=== PATIENT | male | born 1955 | race Caucasian/White ===

== ENCOUNTER 2017-10-28 09:20 | Emergency (ER) | payer OTHER ==
[~2017-10-28] VITALS: Ht 180.3 cm; Wt 122.7 kg
[~2017-10-28 09:20] MED LIST: ALBUTEROL0.83 MG/ML IH; GLUCOPHAGE1000 MG PO; NORCO 325 MG-51 TAB PO; PRAVACHOL 20MG20 MG PO; PRIL40 PO; RT ADVAIR HFA 412 GM IH
[2017-10-28 10:15] LABS: BASO % 0.3 % (0.0-2.0); EOS # 0.1 (0.0-0.7); EOS % 1.4 % (0-4.0); GRAN # 5.8 (1.4-6.5); GRAN % 79.3 % (42.2-75.2); HEMATOCRIT 42.6 % (42.0-52.0); HEMOGLOBIN 14.6 g/dl (13.5-18.0); LYMPH # 0.9 (1.2-3.4); LYMPH % 12.3 % (20.0-51.0); MEAN CELL VOLUME 86 fl (80.0-100.0); MEAN CORPUSCULAR HEMOGLOBIN 30 pg (27.0-31.0); MEAN CORPUSCULAR HGB CONC 34 g/dl (33.0-37.0); MEAN PLATELET VOLUME 11.1 fl (7.4-10.4); MONO # 0.5 (0.1-0.6); MONO % 6.3 % (1.7-9.3); PLATELET COUNT 143 K/mm3 (130-400); RED BLOOD COUNT 4.94 M/mm3 (4.20-5.60); REDCELL DISTRIBUTION WIDTH-CV 12.5 % (11.5-14.5)
[2017-10-28 10:28] LABS: ALBUMIN 4.1 gm/dL (3.5-5.0); BILIRUBIN,TOTAL 2.5 mg/dL (0.0-1.0); CREATININE, serum 0.81 mg/dL (0.66-1.25); POTASSIUM 3.6 mmol/L (3.4-5.0); TOTAL PROTEIN 7.9 gm/dL (6.4-8.2)
[2017-10-28] MEDS ORDERED: SINGULAIR 110 MG/TAB PO (11:13)
[2017-10-28] MEDS ORDERED: PRILOSEC 20MG20 MG PO (11:14)
[2017-10-28] MEDS ORDERED: VENTOLIN0.09 MG IH (11:17)
[2017-10-28] MEDS ORDERED: PRAVACHOL 40MG40 MG PO (11:17)
[2017-10-28] MEDS ORDERED: RT ADVAIR 228 DISKUS IH (11:18)
[2017-10-28] MEDS ORDERED: ZESTRIL40 MG PO (11:18)
[2017-10-28 11:37] VITALS: TEMP 101.3
[2017-10-28] MEDS ORDERED: TAMIFLU 75MG75 MG PO (12:12)
[2017-10-28] MEDS ORDERED: MEDROL 4MG DOSPA4 MG PO (12:12)
[2017-10-28 12:32] VITALS: BP 146/76; PULSE 92
== END 2017-10-28 12:34 | disposition home or self-care (01) ==
LOC: COL.ER 09:20
PROVIDERS: Emergency Medicine
DX: J44.1 Chronic obstructive pulmonary disease with (acute) exacerbation (principal); J10.1 Influenza due to other identified influenza virus with other respiratory manifestations; I10 Essential (primary) hypertension; E11.9 Type 2 diabetes mellitus without complications; E78.5 Hyperlipidemia, unspecified; Z98.890 Other specified postprocedural states; Z79.84 Long term (current) use of oral hypoglycemic drugs
CPT/HCPCS: J1885; J7030; J7512

== ENCOUNTER → 2020-07-27 | Outpatient (CLI) | payer OTHER ==
[~2020-07-27] MED LIST changes: +MEDROL 4MG DOSPA4 MG PO; +PRAVACHOL 40MG40 MG PO; +PRILOSEC 20MG20 MG PO; +RT ADVAIR 228 DISKUS IH; +SINGULAIR 110 MG/TAB PO; +TAMIFLU 75MG75 MG PO; +VENTOLIN0.09 MG IH; +ZESTRIL40 MG PO
== END ==
LOC: COL.RAD 06:47
DX: J32.4 Chronic pansinusitis (principal); R42 Dizziness and giddiness